=== PATIENT | female | born 1980 | race Two or more races ===

== ENCOUNTER 2019-06-24 19:48 | Emergency (ER) | payer OTHER ==
[~2019-06-24] VITALS: Ht 157.5 cm; Wt 63.6 kg
[2019-06-24] MEDS ORDERED: FAMOTIDINE 10 MG/ML 2 ML VIAL IVP ONE (20:00)
[2019-06-24] MEDS ORDERED: SODIUM CHLORIDE 0.9% 1,000 ML IV ONE (20:00)
[2019-06-24] MEDS ORDERED: MethylPREDNISolone SOD SUCC 125 MG/2 ML VIAL IVP ONE (20:00)
[2019-06-24 21:25] VITALS: BP 128/82
== END 2019-06-24 22:03 | disposition home or self-care (01) ==
LOC: EMS 19:52
DX: R06.02 Shortness of breath (principal); T45.2X5A Adverse effect of vitamins, initial encounter; Y92.89 Other specified places as the place of occurrence of the external cause
CPT/HCPCS: 71045; 96374; 96375; 99284; J2930; J3490; J7030; 96365